=== PATIENT | female | born 1995 | race Caucasian/White ===

== ENCOUNTER 2017-10-08 03:21 | Emergency (ER) | payer MEDICAID ==
[~2017-10-08] VITALS: Ht 149.9 cm; Wt 57.0 kg
[~2017-10-08 03:21] MED LIST: TYLENOL
[2017-10-08 03:25] VITALS: BP 116/79
== END 2017-10-08 06:45 | disposition left against medical advice (07) ==
LOC: ER 03:21
DX: R51 Headache (principal); H92.03 Otalgia, bilateral; J02.9 Acute pharyngitis, unspecified; R50.9 Fever, unspecified; Z53.21 Procedure and treatment not carried out due to patient leaving prior to being seen by health care provider

== ENCOUNTER 2017-10-11 11:53 | Emergency (ER) | payer MEDICAID ==
[~2017-10-11] VITALS: Ht 172.7 cm; Wt 62.0 kg
[2017-10-11 13:24] VITALS: BP 120/72
== END 2017-10-11 13:59 | disposition home or self-care (01) ==
LOC: ER 13:02
DX: B34.9 Viral infection, unspecified (principal); H91.93 Unspecified hearing loss, bilateral
CPT/HCPCS: 99283